=== PATIENT | female | born 1980 | race Caucasian/White ===

== ENCOUNTER 2025-03-17 13:45 | Outpatient (AMB) | payer BC, SELFPAY ==
--- NOTE | 2025-03-17 14:08 | AMB.GYNCLNOT ---
Vital Signs 03/17/25 14:14 Height 1.52 m Height Method Stated Weight 57.776 kg Weight Measurement Method Standing Scale BMI 24.8 BP 140/90 H Blood Pressure Source Automatic Cuff Blood Pressure Location Left Upper Arm Position Sitting Respiration 16 Pulse 77 Pulse Source Monitor Temp 97.7 F Temp Source Oral Pulse Oximetry (%) 98 Oxygen Delivery Method Room Air Allergies/Home Meds Allergies & Medications Allergies adhesive tape Allergy (Verified 03/17/25 14:16) latex Allergy (Verified 03/17/25 14:16) Medication Reconciliation conjugated estrogens 0.625 mg/gram vaginal cream (Premarin) 1 applic vaginal QDAY #30 grams 03/17/25 [Rx] estradiol 0.05 mg/24 hr semiweekly transdermal patch 1 patch transdermal .semiweekly #8 ea 03/17/25 [Rx] ibuprofen 600 mg tablet 600 mg PO TID 03/17/25 [History Confirmed 03/17/25] rimegepant 75 mg disintegrating tablet (Nurtec ODT) 75 mg PO Q OTHER DAY 03/17/25 [History Confirmed 03/17/25] Intake Visit Data Collection New Patient or Established: New Patient (never been to [facility]) Reason for Visit:: HORMONE REPLACEMENT THERAPY Seen by Clinical Staff ONLY (RN/MA): No Family Literacy Coordinator Required: No Do You Feel Safe at Home: Yes Authorities Contacted: N/A PCP or OBGYN visit in last 3 months: Yes Hx Now: No Are you currently on any form of Control: Yes Last menstrual period: 03/06/25 Pain Present Currently: No Pain Scale Used: Osorio-Fernandez/Numerical Pain scale:: 0 Smoking Status Smoking Status: Never smoker Refrigeration Specialist history Refrigeration Specialist History Menstrual regularity: regular Flow: normal Monthly: Yes How many days does period last: 3 Age at menarche: 18 Currently sexually active: Yes Questionnaires Covid-19 Vaccine Questionnaire Has patient been vacinated for Covid-19 Have you been vacinated for Covid-19: Yes PHQ-9 PHQ-2 Over the last 2 weeks, how often have you been bothered by any of the following problems? 1. Little interest or pleasure in doing things: not at all 2. Feeling down, depressed, or hopeless: not at all Total score: 0 PHQ-9 3. Trouble falling or staying asleep, or sleeping too much: Not at all 4. Feeling tired or having little energy: Not at all 5. Poor appetite or overeating: Not at all 6. Feeling bad about yourself - or that you are a failure or have let yourself or your family down: Not at all 7. Trouble concentrating on things, such as reading the newspaper or watching television: Not at all 8. Moving or speaking so slowly that other people could have noticed? - Or the opposite - being so fidgety or restless that you have been moving around a lot more than usual: not at all 9. Thoughts that you would be better off or of hurting yourself in some way: Not at all Total score: 0 Source: Developed by Drs. Davey Garcia, Allie King, Alex Barroso and colleagues, with an educational glenn from [employer]. Depression screen completed yes Social History Living Situation History Marital Status: Lives With: Family Housing: House Housing Other:: The patient works in law enforcement. Her daughter is 10 her son is 7. Tobacco History Smoking Status: Never smoker Second Hand Smoke Exposure: No Alcohol History Alcohol Intake: Current Alcohol Intake Frequency: holidays/special occasions only Domestic Abuse History Do You Feel Safe at Home: Yes Past Medical History Past Medical History Have you ever been diagnosed with any of the following: Neurological Problems Migraine: Yes Respiratory Problems Asthma: Yes (On an inhaler) Reproductive Problems Breast Cancer: No (But positive for BRCA2 gene) Previous Pregnancies: Yes ( x 2) Endocrine Problems Diabetes Mellitus Type 2: No Other Problems Hospitalization: Yes (For x 2 and recent hysterectomy) Surgical History Hysterectomy: Yes (Robotic hysterectomy BSO done at [facility] 11/12) Additional Surgical History: C SECTION x 2 History of Present Illness HPI Narrative The patient is a 44-year-old -0-02 who used to see me in [place]. Her mother has breast cancer. Patient was tested for BRCA1 and BRCA2 in my clinic in [place]. Patient is a carrier of the BRCA2 gene. She underwent a robotic hysterectomy with bilateral salpingo-oophorectomy in October 2024 at [facility]. I do not have her op report. She stated the doctor who did her surgery was young and did not want to put her on hormones. The patient went back there for postoperative checks and told the doctor that she was having horrible hot flashes and she was started on a low-dose estradiol and now she is currently on a patch of 0.375 mg a day. She is still getting migraines and vaginal dryness. She is okay with increasing this dose to 0.5 mg and also adding some vaginal estrogen cream. The patient is 1 of 5 children. One of her sisters has tested for BRCA 1 BRCA2 and is negative. Her brother and 2 sisters have not been tested yet. Patient is going to have a colon screening at age 46. She is releasing her records to me from [place]. Dr. Mccormick is her primary care. Of note patient is deciding on which doctor she is going to for prophylactic mastectomy and implant placement. She will have this done sometime this year. Review of Systems Review of Systems Narrative Review of Systems: Patient has hot flashes and vaginal dryness. She also has moodiness. No urinary complaints and no pelvic pain. Exam General General Appearance: alert, in no apparent distress, comfortable, cooperative, healthy appearing, well developed and well groomed Neck Neck exam: Present normal inspection, full ROM and trachea midline Chest Chest inspection: Present normal inspection and symmetric chest wall rise Resp Respiratory exam: Present normal lung sounds bilaterally Card Cardiovascular exam: Present regular rate, normal rhythm and normal heart sounds Abdominal Abdominal exam: Present soft and normal bowel sounds Extremities Extremities exam: Present normal inspection and full ROM Psych Psychiatric exam: Present normal affect and normal mood Skin Skin exam: Present warm, dry, intact and normal color Assessment & Plan Diagnosis / Problem List (1) Genetic predisposition to breast cancer: Status: Acute Assessment and Plan: Patient is a BRCA 2 gene carrier. Status post lap robotic hysterectomy BSO at [facility]. She is pursuing bilateral mastectomy with placement of implants. Encouraged all family members to get tested. (2) Post-menopause on HRT (hormone replacement therapy): Status: Acute Assessment and Plan: Increase estradiol patch to 0.5 mg, add Estrace vaginal cream. Additional Plan Follow Up: 1 Year Office Procedures OB Clinic LOC & Office Proc's Nursing/Assessment Patient Status: Initial/New Patient OB Clinic Nursing Assessment: Medication Reconciliation, Update PMH in EMR and Vital Signs OB Clinic Coordination of Care: Complex Care and Chronic Disease 1-5, Consent,records obtained, informed consent, Education Simp Pt/Fam, Lab and Imaging orders, Results/Orders obtained and Staff clarify orders New Patient Charge New Patient Point Assignment: 1104 New Patient Point Charge: MULTI LINE CLAIMS ADJUSTER Level 3 ([id number])
[2025-03-17 14:14] VITALS: BP 140/90; PULSE 77; RESP 16; TEMP 36.5; O2SAT 98; BMI 24.8
== END 2025-03-17 14:51 | disposition home or self-care (01) ==
LOC: HODSOBC 13:45
PROVIDERS: PCP Internal Medicine; Referring Provider Internal Medicine; Supervising Provider Obstetrics & Gynecology; Visit Provider Obstetrics & Gynecology
DX: Z15.01 Genetic susceptibility to malignant neoplasm of breast (principal); Z79.890 Hormone replacement therapy; R23.2 Flushing; G43.909 Migraine, unspecified, not intractable, without status migrainosus; Z80.3 Family history of malignant neoplasm of breast; Z90.710 Acquired absence of both cervix and uterus; Z90.722 Acquired absence of ovaries, bilateral; Z90.79 Acquired absence of other genital organ(s); Z91.040 Latex allergy status; Z91.048 Other nonmedicinal substance allergy status
CPT/HCPCS: 99203; G0463